=== PATIENT | male | born 1950 | race Caucasian/White ===

== ENCOUNTER → 2017-10-30 | Outpatient (CLI) | payer MEDICARE, OTHER ==
[~2017-10-30] MED LIST: METF1000 PO; NYST15CR TOP; OXYC-197 PO; ROSU40TA PO
== END ==
LOC: CARD 12:36
PROVIDERS: ATTEND Internal Medicine Cardiovascular Disease
DX: I25.10 Atherosclerotic heart disease of native coronary artery without angina pectoris (principal); K92.2 Gastrointestinal hemorrhage, unspecified; E78.5 Hyperlipidemia, unspecified; R07.89 Other chest pain; I34.0 Nonrheumatic mitral (valve) insufficiency
CPT/HCPCS: 93306

== ENCOUNTER → 2017-11-04 | Outpatient (CLI) | payer MEDICARE, OTHER ==
[~2017-11-04] VITALS: Ht 177.8 cm; Wt 83.9 kg
[~2017-11-04] MED LIST changes: +CATHETER FLUSH 10 ML SYR IV PRN
[2017-11-04 09:28] VITALS: BP 126/71
--- NOTE | 2017-11-05 09:00 | STRESS TEST ---
DATE OF SERVICE: 11/04/2017 [facility] MY[facility]IEW STRESS TEST REPORT REFERRING PHYSICIAN: Jamshid Abreu DO. Baseline heart rate is 94. Baseline blood pressure 119/74. Baseline EKG is sinus rhythm with no ischemic changes. In summary, the patient was injected with 10.29 mCi of technetium-99 Myoview and the resting images were obtained. Then, the patient started exercising with a baseline heart rate, blood pressure and EKG mentioned above. He was able to finish a total of 5 minutes on standard Dariel protocol, achieving maximum heart rate of 141, which is 93% of maximum expected heart rate. With peak exercise level, EKG was showing minimal nondiagnostic changes. During recovery, heart rate and blood pressure returned to baseline. The resting and stress images were reviewed and compared in the short axis, horizontal long axis, and vertical long axis views. Review of the images showed extracardiac attenuation affecting the quality of the images. There is mild decreased uptake at the basal to mid inferoseptum which is fixed. No significant ischemia was noted. SSS is 2, SDS 0, TID value is 1.05. On the gated images, the left ventricle appeared to be in normal size with normal contractility. Calculated ejection fraction 65%. CONCLUSION: 1. Fair exercise tolerance, a total of 5 minutes on standard Dariel protocol, total of 7 METS achieving 93% of maximum expected heart rate. 2. Appropriate heart rate and blood pressure response to exercise returned to baseline during recovery. 3. Nondiagnostic EKG changes with exercise returned to baseline during recovery. 4. Diaphragmatic attenuation with no ischemia or infarction on SPECT images. 5. Normal left ventricular size with normal contractility. Calculated ejection fraction 65%. Job ID: [id number] DocumentID: [id number] Dictated Date: 11/05/2017 07:37:21 Sound Controller Date: 11/05/2017 09:00:07 Dictated By: BRIAN LOVE MD
== END ==
LOC: CARD 07:25
PROVIDERS: ATTEND Internal Medicine Cardiovascular Disease
DX: I25.10 Atherosclerotic heart disease of native coronary artery without angina pectoris (principal); E78.5 Hyperlipidemia, unspecified; R07.89 Other chest pain; K92.2 Gastrointestinal hemorrhage, unspecified
CPT/HCPCS: 78452; 93017